=== PATIENT | male | born 1955 | race Caucasian/White ===

== ENCOUNTER → 2017-01-25 | Day surgery (SDC) | payer OTHER ==
[~2017-01-25] VITALS: Ht 177.8 cm; Wt 111.0 kg
[~2017-01-25] MED LIST: ASPIRIN EC81 MG PO; COREG6.25 MG PO; GLUCOPHAGE1000 MG PO; GLUCOTROL XL10 MG PO; JARDIANCE10 MG PO; LIPITOR20 M1 PO; MEN'S MULTI-VI1 EACH PO; MIRAPEX0.5 MG PO; PROTONIX40 MG PO; TRULICITY1.5 MG/0.5 PO; ZANTAC (NON-FO150 MG PO
== END ==
LOC: GPOC 01-22 16:00 → GEND 08:57 → GPOC 09:00
PROC: 0DB68ZX Excision of Stomach, Via Natural or Artificial Opening Endoscopic, Diagnostic (ICD-10-PCS; principal; 2017-01-25)
PROC: 0DBK8ZX Excision of Ascending Colon, Via Natural or Artificial Opening Endoscopic, Diagnostic (ICD-10-PCS; 2017-01-25)
DX: D12.2 Benign neoplasm of ascending colon (principal); K31.7 Polyp of stomach and duodenum; K29.70 Gastritis, unspecified, without bleeding; K21.9 Gastro-esophageal reflux disease without esophagitis; I85.00 Esophageal varices without bleeding; K64.4 Residual hemorrhoidal skin tags; K62.5 Hemorrhage of anus and rectum; E66.9 Obesity, unspecified; E78.5 Hyperlipidemia, unspecified; E11.65 Type 2 diabetes mellitus with hyperglycemia; I10 Essential (primary) hypertension; Z79.82 Long term (current) use of aspirin; Z79.84 Long term (current) use of oral hypoglycemic drugs; Z79.899 Other long term (current) drug therapy; Z90.49 Acquired absence of other specified parts of digestive tract; Z98.890 Other specified postprocedural states
CPT/HCPCS: J1610; J2001; J7030

== ENCOUNTER → 2017-03-28 | Outpatient (CLI) | payer OTHER | LOC: LGSMG 10:26 | DX: R07.89 Other chest pain (principal); R10.13 Epigastric pain ==

== ENCOUNTER → 2017-04-23 | Outpatient (CLI) | payer OTHER | END | disposition disaster alternative care site (69) | LOC: GRAD 08:31 | DX: K74.0 Hepatic fibrosis (principal); I85.00 Esophageal varices without bleeding; K76.0 Fatty (change of) liver, not elsewhere classified; K76.6 Portal hypertension; R74.0 Nonspecific elevation of levels of transaminase and lactic acid dehydrogenase [LDH]; K76.9 Liver disease, unspecified; R16.1 Splenomegaly, not elsewhere classified; Z90.49 Acquired absence of other specified parts of digestive tract ==